=== PATIENT | female | born 1995 | race Caucasian/White ===

== ENCOUNTER → 2018-04-23 | Outpatient (CLI) | payer OTHER ==
[~2018-04-23] MED LIST: Z.0.SINGULAIR10 MG PO
--- NOTE | 2018-04-23 13:59 | Diagnostic Imaging Report ---
EXAMINATION: Thyroid ultrasound. CLINICAL HISTORY: Autoimmune thyroiditis COMPARISON: None. . DISCUSSION: Transverse and longitudinal images of the thyroid were obtained utilizing grayscale and color Doppler modalities. The right thyroid lobe measures 5.1 x 1.9 x 2.2 cm and shows heterogeneous echogenicity. No nodules are seen. The left thyroid lobe measures 4.6 x 1.9 x 2.4 cm and shows heterogeneous echogenicity. No nodules are seen. The thyroid isthmus measures 0.6 cm and shows normal echogenicity. No nodules are seen. There is no adenopathy. IMPRESSION: Heterogeneous thyroid gland may be reflective of thyroiditis. No nodules. Signed by: Dr. Star Marks M.D. on 04/23/2018 1:56 PM
== END ==
LOC: US 12:55
PROVIDERS: ATTEND Family Medicine
DX: E06.3 Autoimmune thyroiditis (principal)
CPT/HCPCS: 76536

== ENCOUNTER → 2021-08-02 | Outpatient (CLI) | payer OTHER | LOC: US 12:53 | PROVIDERS: ATTEND Family Medicine | DX: E03.9 Hypothyroidism, unspecified (principal) | CPT/HCPCS: 76536 ==